=== PATIENT | female | born 2005 ===

== ENCOUNTER 2024-01-29 18:39 | Emergency (ER) | payer BC, SELFPAY ==
[2024-01-29 18:46] VITALS: BP 130/90
[2024-01-29 19:12] LABS: Urine Albumin Negative (Neg - Trace); Urine Bilirubin Negative (Negative); Urine Character Clear (Clear); Urine Color Yellow; Urine Glucose Negative (Negative); Urine Ketone Negative (Negative); Urine Leukocyte Trace (Negative); Urine Nitrite Negative (Negative); Urine Occult Blood 4+ (Negative); Urine Specific Gravity 1.025 (<1.030); Urine Urobilinogen Negative (Neg - 1+)
[2024-01-29 19:13] LABS: % Basophils 0.4 % (0-2); % Eosinophils 0.7 % (0-6); % Immature Granulocytes 0.1 % (0-0.5); % Lymphocytes 27.4 % (20.5-51.1); % Monocytes 5.2 % (1.7-9.3); % Neutrophils 66.2 % (42.2-75.2); Absolute Eosinophils 0.1 10^3/uL (0-0.7); Absolute Lymphocytes 2.1 10^3/uL (1.2-3.4); Absolute Monocytes 0.4 10^3/uL (0.1-0.6); Hemoglobin 11.6 g/dL (12.0-16.0); Mean Corp Hgb Conc. 32.2 g/dL (33.0-37.0); Mean Corpuscular Hgb 27.7 pg (27.0-31.0); Mean Corpuscular Volume 85.9 fL (81.0-99.0); Mean Platelet Volume 9.7 fL (7.4-10.4); Nucleated Red Blood Cells % 0 %; Platelet Count 283 10^3/uL (130-400); Red Blood Cell Count 4.19 10^6/uL (4.20-5.40); White Blood Cell Count 7.6 10^3/uL (4.8-10.8)
[2024-01-29 19:18] LABS: Urine Red Blood Cell 30-40 /HPF (0-2); Urine Squamous Cell 16-20 /LPF (Few); Urine White Cell 0-2 /HPF (0-5)
[2024-01-29 19:44] LABS: HCG, Serum Qualitative Screen Negative
[2024-01-29 19:56] LABS: ALT (SGPT) 17 U/L (0-35); AST (SGOT) 27 U/L (14-36); Albumin 4.8 g/dl (3.5-5.0); Alkaline Phosphatase 65 U/L (38-126); Blood Urea Nitrogen 13 mg/dl (7-17); Calcium 9.8 mg/dl (8.4-10.2); Carbon Dioxide 26 mmol/L (22-30); Chloride 101 mmol/L (98-107); Glucose 113 mg/dl (70-99); Lipase 125 U/L (23-300); Potassium 5.2 mmol/L (3.5-5.1); Sodium 135 mmol/L (135-145); Total Bilirubin 0.3 mg/dl (0.2-1.3); Total Protein 7.8 g/dl (6.3-8.2); eGFR > 60.00
[2024-01-29 20:38] VITALS: BP 116/81; BMI 26.7
--- NOTE | 2024-01-29 20:44 | EDRN ---
Pt says she ate very spicy croatian soup for lunch and shortly after her RUQ felt heavy and she had sharp pains. Pt vomited twice. Pt has had similar pains after eating a heavy meal or eating too much but has never been evaluated for this pain.
Last episode was 2-3 weeks ago. Pain lasted about 3 hours - no pain meds taken. Pt denies cp, sob, abd pain now, fever/chills//cough, urinary symptoms, dizziness, weakness, constipation, diarrhea.
--- NOTE | 2024-01-29 21:05 | ED.GENMED ---
History of Present Illness
General
Chief Complaint: Abdominal Pain
Source: patient
Exam Limitations: none
Time Seen by Provider: 01/29/24 20:21
Nursing documentation reviewed up to this point in time: agreed with
Travel History
Have you had any contact with someone who has COVID-19?: No
Do you have any symptoms of coronavirus? Fever > 100 degrees, chills, cough, shortness of breath, sore throat, loss of taste or smell, muscle aches, or headache?: No
History of Present Illness
History of Present Illness:
Pleasant 18-year-old female who presents with right upper quadrant abdominal pain. This began 2 hours ago. She states that she ate spicy Pashto soup and had right upper quadrant abdominal pain. She reports that her symptoms have mostly resolved.
Denies fever or chills. States that when she eats greasy food she gets similar pain. No previous medical or surgical history. Currently menstruating.
Review of Systems
Review of Systems
Allergies reviewed?: Yes
Other source history: family
All Other Systems: ROS reviewed and negative except as documented in HPI and ROS
ABD/GI: Reports abdominal pain
Psychiatric: Reports anxiety
Phy Exam
General Physical Exam
General Presentation: well appearing and no apparent distress
General Skin: warm and dry
General Habitus: normal
General Mental: alert
General Hydration: appears well hydrated
ENT Exam
ENT Exam: EOMI, pharynx normal, neck supple and normocephalic
Eye Exam
Eye Exam: PERRL, cornea clear and conjunctiva normal
Cardiovascular Exam
Cardiovascular Exam: regular rate/rhythm, no edema, no murmur and normal peripheral pulses
Pulmonary Exam
Pulmonary Exam: lungs clear, no respiratory distress, no rales, no crackles, no rhonchi, no stridor, no wheezing and no cough
Gastrointestinal Exam
Gastrointestinal Exam: normal bowel sounds, non tender, soft, no organomegaly, no pulsatile mass and non distended
Neurological Exam
Neurological Exam: alert, oriented x3, no motor deficits and speech normal
Musculoskeletal Exam
Musculoskeletal Exam: full ROM and no edema
Skin Exam
Skin Exam: normal color, warm/dry, no rash and no petechia
Psychiatric Exam
Psychiatric Exam: normal mood/affect
Course
Orders/Labs/Results
Orders:
Orders
01/29/24 18:51
Test Result ONCE
01/29/24 19:00
Complete Blood Count/With Diff Urgent
Comprehensive Metabolic Panel Urgent
HCG, Serum Qualitative Screen Urgent
Lipase Urgent
01/29/24 19:05
Urinalysis Reflex To Culture Urgent
Date Specimen was Collected: 01/29/24
Time Specimen was Collected: 18:50
Urine Microscopic Reflex Cult Urgent
01/29/24 21:05
US Abdomen Complete/Upper Urgent
Comment:
Reason For Exam: RUQ abd pain
Abnormal Lab Results
01/29/24 01/29/24
19:00 19:05
RBC 4.19 L 10^6/uL
(4.20-5.40)
Hgb 11.6 L g/dL
(12.0-16.0)
Hct 36.0 L %
(37.0-47.0)
MCHC 32.2 L g/dL
(33.0-37.0)
Potassium 5.2 H mmol/L
(3.5-5.1)
Glucose 113 H mg/dl
(70-99)
Ur Occult Blood Reflex 4+ A
(Negative)
Leukocyte Esterase Rfl Trace A
(Negative)
Urine RBC 30-40 A /HPF
(0-2)
01/29/24 19:00
01/29/24 19:00
Vital Signs
Initial and Last Documented VS:
Initial Vital Signs
Temp Pulse Resp BP Pulse Ox
99.2 F 95 20 130/90 100
01/29/24 18:46 01/29/24 18:46 01/29/24 18:46 01/29/24 18:46 01/29/24 18:46
Last Documented Vital Signs
Temp Pulse Resp BP Pulse Ox
99.2 F 81 14 108/78 99
01/29/24 18:46 01/29/24 23:15 01/29/24 23:15 01/29/24 23:15 01/29/24 23:15
*Critical Care Note
Total Time (30-74mins, 75-104mins- exclusive of procedures): Not Applicable
Update Note
Update Note:
Abdomen ultrasound
IMPRESSION:
Cholelithiasis, including with gallstones seen within the lower gallbladder segment and the bladder neck. No gallbladder wall thickening. Negative sonographic Sharma's sign.
The CBD measures within normal limits.
No hydronephrosis.
ED Attending Note
-
Portions of this chart may have been created with voice recognition software.� Occasional wrong word or��sound alike� substitutions may have occurred due to the inherent limitations of voice recognition software.
Discharge Plan
Departure
Patient Disposition: Home (Routine Discharge)
Date of Disposition: 01/29/24
Time of Disposition: 23:05
Patient with high blood pressure during this ER visit?: No
Condition: Good
Discharge Problem:
Abdominal pain, Gall bladder stones
Instructions: Gallstones (DC)
Prescriptions:
No Action
No Current Medications
0
Referrals:
[facility] [Outside]
Chato Major MD [Active] - As needed
NONE,* [Family Provider] -
Activity Restrictions/Additional Instructions:
It was a pleasure meeting you and taking part in your care. We hope for your continued healing and wellness.
Please read discharge instructions in their entirety. However, they are for general education and may not describe your exact diagnosis at discharge. Information on your ER visit and medical conditions were discussed with you along with appropriate
follow up information...
If indicated, please take your medications as instructed and indicated on discharge paperwork.
Please schedule a follow up appointment as directed. Call to schedule an appointment
Please return to the emergency department with ANY change in, persisting, or worsening of symptoms. If any of your symptoms do not improve, or persist, or become more severe within 6-12 hours, please return to the emergency department for further
care.
Please return to the emergency department if you develop a headache, neck pain/stiffness, fever greater than 100.4F, chest pain, shortness of breath, persistent nausea, vomiting, slurred speech, difficulty walking, numbness/tingling, weakness, signs
of infection or any other symptoms that are worrisome to you.
If you have any questions or concerns please do not hesitate to call the Hospital at or E-mail me directly at [email or web address]
Interventions
Interventions:
*Risk Screen - Suicide Last Done: 01/29/24 20:38
*General Assessment Last Done: 01/29/24 20:38
*Neglect/Abuse Screening Last Done: 01/29/24 20:38
*ED COVID-19 Vaccine History Last Done: 01/29/24 20:38
*Nursing Disposition Last Done: 01/29/24 23:21
TY-[id number]-[id number] Assessment Last Done: 01/29/24 20:38
Discharge Date and Time
Discharge Date/Time: 01/29/24 23:21
Print Language: CHILEAN
[2024-01-29 23:15] VITALS: BP 108/78
== END 2024-01-29 23:21 | disposition home or self-care (01) ==
LOC: EMR 18:39
PROVIDERS: Emergency Medicine; EMERGENCY PHYSICIAN Student in an Organized Health Care Education/Training Program
DX: K80.20 Calculus of gallbladder without cholecystitis without obstruction (principal); R10.11 Right upper quadrant pain; R11.2 Nausea with vomiting, unspecified
CPT/HCPCS: 99284; 76700; 80053; 81003; 81015; 83690; 84703; 85025